=== PATIENT | male | born 1945 | race Caucasian/White ===

== ENCOUNTER 2018-12-30 09:16 | Outpatient (REF) | payer MEDICARE, BC, SELFPAY ==
[2018-12-30 15:24] LABS: Calculated LDL 131 mg/dL; Cholesterol 203 mg/dL (50-200); Glucose 315 mg/dL (70-100); HDL Cholesterol 43 mg/dL (40-60); Triglyceride 145 mg/dL (30-150)
== END 2018-12-30 09:36 ==
LOC: NCHCN 09:16
PROVIDERS: PCP Internal Medicine; Visit Provider Internal Medicine
DX: R73.09 Other abnormal glucose (principal); E66.9 Obesity, unspecified
CPT/HCPCS: 80061; 82947; 83721

== ENCOUNTER 2019-01-24 13:33 | Outpatient (CLI) | payer MEDICARE, BC, SELFPAY ==
--- NOTE | 2019-01-24 12:50 | DIABASSESS_ITS ---
Date of Service: 01/24/19 DESCRIPTION/ASSESSMENT: Geoffrey Adams at 73 years old presents for nutrition consult focused on diabetes management. He is clear he is looking only for lifestyle changes and is not interested in medication or monitoring of blood sugars. He does not feel his blood sugar is affecting his quality of life. He has recently lost 30 pounds by cutting portions, eating no white bread, cut evening cocktail to 1 serving. A1c 14 He has no symptoms of hyperglycemia. Geoffrey eats orange juice with oatmeal or ornelas/eggs for breakfast; snack of fruit for lunch; salad with meat for supper. Last night he had hot dogs and whiskey and coke for supper. he reports drinking 1-2 glasses milk daily. 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 No regular physical activity. He denies stress/depression. INTERVENTION: Mr. Adams is not interested in managing his diabetes beyond lifestyle changes. Explained residential complications of hyperglycemia recognizing his age at onset, although it is unclear how long he has had hyperglycemia. Reviewed diabetes food guide; discussed benefits of cardiovascular physical activity. Checked his blood sugar randomly at 329mg/dl. Explained goals. He voices no concern. ACTION PLAN: He will stop orange juice in AM; add vegetables as part of his snack. consider addition of a walk with sing/talk test as his guide Individual MNT __3__ units billed TIME IN: 1250 OUT: 1340 No DM group education series being offered at this time.
== END 2019-01-24 13:53 ==
PROVIDERS: PCP Internal Medicine; Visit Provider Dietitian, Registered
DX: E11.9 Type 2 diabetes mellitus without complications (principal); Z71.3 Dietary counseling and surveillance
CPT/HCPCS: 97802

== ENCOUNTER → 2019-06-05 08:48 | Outpatient (BNVA) | payer MEDICARE, BC, SELFPAY | PROVIDERS: PCP Internal Medicine; Referring Provider Internal Medicine; Visit Provider Physical Therapy Assistant | DX: Z12.11 Encounter for screening for malignant neoplasm of colon (principal) ==

== ENCOUNTER 2019-06-09 07:11 | Day surgery (SDC) | payer MEDICARE, BC, SELFPAY ==
[2019-06-09 07:24] VITALS: BP 129/87; PULSE 75; RESP 18; TEMP 36.3; O2SAT 94
[2019-06-09] MEDS: Lactated Ringers 1,000 ML 80 ML IV (07:59)
--- NOTE | 2019-06-09 09:04 | W.COLOREPORT ---
Date of service: 06/09/19 Time of Service: 09:04 Colonoscopy Report Date of procedure: 06/09/19 Pre-op diagnosis general: hemeoccult + Post-op diagnosis procedure note: other (nl colon ) Procedure: CE Surgeon: Leila Weinberg Anesthesia proc note operative: GETA Estimated blood loss (mL): 0 Pathology: none sent Complications: None Disposition: same day Prep: Miralax/Dulcolax Retraction Time: 12 mins Procedure Description: After informed consent was obtained the patient was taken to the procedure room and placed in a left decubitous position. Monitors were applied and a time out was done. The patients name, date of , procedure, allergies to medications and metal in their body was reviewed. The patient was then sedated. Once sedated and comfortable a rectal exam was done. External exam was normal. Internal exam revealed a normal sphincter tone and no palpable masses. The prostate was not palpable. The scope was then introduced and retrofelexed. No internal hemorrhoids were identified. The scope was then advanced to the cecum w/ moderate difficulty. He has a very floppy colon w/ poor tone. I could not get the scope to go into the cecum- but I could see into the cecum adn there were not polyps or other abnormalities. The prep was sub-optimal. There was still a significant amount of liquid stool. The colon had poor tone and pt had a hard time holding in the air. Also he was coughing throughout the procedure. The scope was then slowly retracted over 12 minutes back into the rectum. No polyps AVMs or diverticula were noted. The scope was removed and the patient was woken up and taken back to Same day surgery in stable condition. The patient tolerated the procedure well and there were no immediate complications. Follow up: The patient does not need any further colonoscopies, unless they develop changes in bowel habits or other new gastrointestinal complaints.
--- NOTE | 2019-06-09 09:07 | DSE_ITS ---
Date of service: 06/09/19 Time of Service: 09:07 DS: Diagnosis Discharge Diagnosis (1) Heme positive stool: Status: Acute Discharge Plan Disposition Patient Disposition: HOME Condition: Good Discharge Details Reason For Visit: SCREENING Attending Provider: Leila Weinberg Primary Care Provider: Berto Gonzalez Home Meds and New Rx's Prescriptions: Continued NO Known home meds PO RF: 0 Discontinued polyethylene glycol 3350 17 gram/dose powder 238 g PO ONCE Qty: 238 RF: 0 bisacodyl [Dulcolax (bisacodyl)] 5 mg tablet,delayed release (DR/EC) 5 mg PO ONCE Qty: 4 RF: 0 Discharge Instructions Additional Instructions: Findings: normal Follow up: with PCP in 1-2 wks. Re: elevated BP Please call if you develop: fevers >101.5 Nausea or Vomiting Abdominal pain that is not transient DAY SURGERY UNIT POST COLONOSCOPY INSTRUCTIONS 1. Because there will be medication in your system for the next 24 hours, you may feel a little sleepy. Your coordination will be affected. Therefore: a. Do not drive or operate dangerous equipment for 24 hours. b. Do not drink alcohol beverages for 24 hours (not even beer). c. Plan to go home and rest for the day. 2. Generally there are no restrictions on your activity after a day or so has gone by, but you may feel a bit fatigued for a few days. 3 After you arrive home you may have a light meal and return to a normal diet as you can tolerate it without feeling sick to your stomach. 4. After surgery, you may feel pain or discomfort. This should be only transient, but if it persists please contact your doctor. 5. If there are any questions regarding the findings of your procedure, please feel free to contact your doctor. 6. If you are unable to contact your doctor with a problem, contact the hospital at [phone]. 7. Continue all your regular medications unless directed otherwise. I understand the above instructions and have no questions. Signature of Patient or Responsible Adult Escort Date/Time Name of Responsible Adult Escort Signature of Nurse Date/Time Discharge Orders Discharge Orders: Discharge Order (Routine); Ordered 06/09/19 Ordered By: Leila Weinberg DS: Data Vitals/I&O Vitals and I&O: Vital Signs Temperature 36.3 C L 06/09/19 07:24 Pulse 75 06/09/19 07:24 Pulse Rhythm Regular 06/09/19 07:24 Respiratory Rate 18 06/09/19 07:24 Respiratory Depth Deep 06/09/19 07:24 Blood Pressure 129/87 06/09/19 07:24 Pulse Oximetry 94 L 06/09/19 07:24 Oxygen Delivery Method Room Air 06/09/19 07:24 Oxygen Flow Rate 0 06/09/19 07:24 Pain Level 0 06/09/19 07:24 Intake & Output 06/08/19 06/08/19 06/09/19 11:59 23:59 11:59 Intake Total 300 / 300 Balance 300 / 300 Weight 108.1 kg Intake: IV 300 / 300 [facility] Social History (Updated 06/05/19 @ 09:22 by TYESHA Desouza) Smoking/Tobacco Use Status: Former Tobacco Use Alcohol Intake: current Alcohol Intake frequency: 0-2 drinks per day Alcohol type: hard liquor Substance use type: does not use Do you feel safe at home: Yes Do you feel safe in your relationship?: Yes
--- NOTE | 2019-06-09 09:10 | W.PM.DSUDISC ---
Discharge Plan Disposition Patient Disposition: HOME Condition: Good Discharge Details Reason For Visit: SCREENING Attending Provider: Leila Weinberg Primary Care Provider: Berto Gonzalez Home Meds and New Rx's Prescriptions: Continued NO Known home meds PO RF: 0 Discontinued polyethylene glycol 3350 17 gram/dose powder 238 g PO ONCE Qty: 238 RF: 0 bisacodyl [Dulcolax (bisacodyl)] 5 mg tablet,delayed release (DR/EC) 5 mg PO ONCE Qty: 4 RF: 0 Discharge Instructions Additional Instructions: Findings: normal Follow up: with PCP in 1-2 wks. Re: elevated BP Please call if you develop: fevers >101.5 Nausea or Vomiting Abdominal pain that is not transient DAY SURGERY UNIT POST COLONOSCOPY INSTRUCTIONS 1. Because there will be medication in your system for the next 24 hours, you may feel a little sleepy. Your coordination will be affected. Therefore: a. Do not drive or operate dangerous equipment for 24 hours. b. Do not drink alcohol beverages for 24 hours (not even beer). c. Plan to go home and rest for the day. 2. Generally there are no restrictions on your activity after a day or so has gone by, but you may feel a bit fatigued for a few days. 3 After you arrive home you may have a light meal and return to a normal diet as you can tolerate it without feeling sick to your stomach. 4. After surgery, you may feel pain or discomfort. This should be only transient, but if it persists please contact your doctor. 5. If there are any questions regarding the findings of your procedure, please feel free to contact your doctor. 6. If you are unable to contact your doctor with a problem, contact the hospital at [phone]. 7. Continue all your regular medications unless directed otherwise. I understand the above instructions and have no questions. Signature of Patient or Responsible Adult Escort Date/Time Name of Responsible Adult Escort Signature of Nurse Date/Time Activity:: No lifting over 20 pounds or strenuous activity x24 hours Diet:: Small light meals x24 hours Discharge Orders Discharge Orders: Discharge Order (Routine); Ordered 06/09/19 Ordered By: Leila Weinberg DS: Diagnosis Discharge Diagnosis (1) Heme positive stool: Status: Acute
[2019-06-09 09:25] VITALS: BP 125/79; PULSE 58; RESP 18; TEMP 36.1; O2SAT 96
== END 2019-06-09 10:11 | disposition home or self-care (01) ==
PROVIDERS: PCP Internal Medicine; Visit Provider Surgery
PROC: 0DJD8ZZ Inspection of Lower Intestinal Tract, Via Natural or Artificial Opening Endoscopic (ICD-10-PCS; CPT 45378; principal; 2019-06-09 08:00)
DX: Z12.11 Encounter for screening for malignant neoplasm of colon (principal); R19.5 Other fecal abnormalities; K63.89 Other specified diseases of intestine
CPT/HCPCS: G0121; J2704

== ENCOUNTER 2020-03-15 21:04 | Outpatient (REF) | payer MEDICARE, BC, SELFPAY ==
[2020-03-19 15:59] LABS: SARS-CoV-2 RNA Undetected (Undetected); SARS-CoV-2 Specimen Source Nasal
== END 2020-03-15 21:24 ==
LOC: NCHCN 21:04
PROVIDERS: PCP Internal Medicine; Visit Provider Internal Medicine
DX: Z20.828 Contact with and (suspected) exposure to other viral communicable diseases (principal)
CPT/HCPCS: U0003